=== PATIENT | male | born 1965 | race Caucasian/White ===

== ENCOUNTER 2021-01-17 19:19 | Emergency (ER) | payer SELFPAY ==
[~2021-01-17] VITALS: Ht 182 cm; Wt 128.0 kg
--- NOTE | 2021-01-17 19:49 | ED Respiratory ---
General Chief Complaint: Respiratory Problems Stated Complaint: OXYGEN LEVEL LOW,FEVER,COUGH,HEADACHE Source: patient History of Present Illness Date Seen by Provider: Jan 17, 2021 Time Seen by Provider: 19:30 Initial Comments Patient is a 55-year-old male who presents with nonproductive cough, fever chills sweats body aches and generalized malaise. Symptoms began approximately 7 to 10 days ago. Patient reports headache loss of taste and smell today. He has not been vaccinated for Covid. History of COPD. Patient has never been a smoker. No history of asthma. No medications or therapies prior to arrival. No other acute symptoms or complaints. Timing/Duration: just prior to arrival Severity: moderate Prior Episodes/Possible Cause: other Modifying Factors: Improves With Other Allergies and Home Medications Allergies Coded Allergies: No Known Drug Allergies (Unverified , 01/17/21) Patient Home Medication List Home Medication List Reviewed: Yes Review of Systems Review of Systems Constitutional: see HPI EENTM: see HPI Respiratory: see HPI Cardiovascular: see HPI Gastrointestinal: see HPI Genitourinary: see HPI Musculoskeletal: no symptoms reported Skin: no symptoms reported Psychiatric/Neurological: No Symptoms Reported Hematologic/Lymphatic: No Symptoms Reported Immunological/Allergic: no symptoms reported All Other Systems Reviewed Negative Unless Noted: Yes Past Rhbceti-Mqjhko-Kcjjlo Hx Patient Social History Tobacco Use?: No Physical Exam Vital Signs - First Documented 01/17/21 19:30 Temp 35.8 Pulse 118 Resp 20 B/P (MAP) 151/84 (106) Pulse Ox 96 O2 Delivery Room Air Capillary Refill : Height: '" Weight: lbs. oz. kg; BMI Method: General Appearance: WD/WN, no apparent distress Eyes: Bilateral Eye Normal Inspection, Bilateral Eye PERRL, Bilateral Eye EOMI HEENT: PERRL/EOMI, pharynx normal Neck: non-tender, full range of motion, supple Respiratory: chest non-tender, lungs clear, decreased breath sounds Cardiovascular: regular rate, rhythm Gastrointestinal: non tender, soft Extremities: no pedal edema Neurologic/Psychiatric: chipper II-XII nml as tested, no motor/sensory deficits, alert, oriented x 3 Focused Exam Sepsis Stage: Ruled Out Progress/Results/Core Measures Suspected Sepsis SIRS Temperature: Pulse: Respiratory Rate: Laboratory Tests 01/17/21 20:08: White Blood Count 7.4 Blood Pressure / Mean: Laboratory Tests 01/17/21 20:08: Creatinine 1.46H, Platelet Count 143, Total Bilirubin 0.6 Results/Orders Lab Results Laboratory Tests Test 01/17/21 20:08 Range/Units White Blood Count 7.4 4.3-11.0 10^3/uL Red Blood Count 5.04 4.30-5.52 10^6/uL Hemoglobin 15.8 13.3-17.7 g/dL Hematocrit 45 40-54 % Mean Corpuscular Volume 89 80-99 fL Mean Corpuscular Hemoglobin 31 25-34 pg Mean Corpuscular Hemoglobin Concent 35 32-36 g/dL Red Cell Distribution Width 12.9 10.0-14.5 % Platelet Count 143 130-400 10^3/uL Mean Platelet Volume 11.2 9.0-12.2 fL Immature Granulocyte % (Auto) 0 % Neutrophils (%) (Auto) 72 42-75 % Lymphocytes (%) (Auto) 20 12-44 % Monocytes (%) (Auto) 8 0-12 % Eosinophils (%) (Auto) 0 0-10 % Basophils (%) (Auto) 0 0-10 % Neutrophils # (Auto) 5.3 1.8-7.8 X 10^3 Lymphocytes # (Auto) 1.4 1.0-4.0 X 10^3 Monocytes # (Auto) 0.6 0.0-1.0 X 10^3 Eosinophils # (Auto) 0.0 0.0-0.3 10^3/uL Basophils # (Auto) 0.0 0.0-0.1 10^3/uL Immature Granulocyte # (Auto) 0.0 0.0-0.1 10^3/uL Sodium Level 133 L 135-145 MMOL/L Potassium Level 4.3 3.6-5.0 MMOL/L Chloride Level 96 L 98-107 MMOL/L Carbon Dioxide Level 19 L 21-32 MMOL/L Anion Gap 18 H 5-14 MMOL/L Blood Urea Nitrogen 16 7-18 MG/DL Creatinine 1.46 H 0.60-1.30 MG/DL Estimat Glomerular Filtration Rate 50 BUN/Creatinine Ratio 11 Glucose Level 232 H 70-105 MG/DL Calcium Level 8.8 8.5-10.1 MG/DL Corrected Calcium 8.6 8.5-10.1 MG/DL Total Bilirubin 0.6 0.1-1.0 MG/DL Aspartate Amino Transf (AST/SGOT) 46 H 5-34 U/L Alanine Aminotransferase (ALT/SGPT) 14 0-55 U/L Alkaline Phosphatase 70 40-136 U/L Troponin I < 0.30 <0.30 NG/ML Pro-B-Type Natriuretic Peptide 215.1 H <75.0 PG/ML Total Protein 8.3 H 6.4-8.2 GM/DL Albumin 4.3 3.2-4.5 GM/DL Smear Scan RARE PLT CLUMPS My Orders Orders - DEWEY ARANGO DO Cbc With Automated Diff (01/17/21 19:33) Comprehensive Metabolic Panel (01/17/21 19:33) Chest 1 View Ap/Pa Only (01/17/21:33) Ekg-Prn For Chest Pain Or Rhyt (01/17/21 19:33) Troponin I Fs (01/17/21 19:33) Probnp Fs (01/17/21 19:33) Doxycycline Hyclate Tablet (Vibramycin T (01/18/21 09:00) Vital Signs/I&O 01/17/21 19:30 Temp 35.8 Pulse 118 Resp 20 B/P (MAP) 151/84 (106) Pulse Ox 96 O2 Delivery Room Air Capillary Refill : Departure Communication (Admissions) Chest x-ray: Viral pneumonitis Chest x-ray, presentation also suspect small it is consistent with Covid pneumonia. No respiratory compromise. Steroids, antibiotics in breathing treatment given. We will continue therapeutic and supportive care with PCP follow-up as needed. Return precautions reviewed. Patient verbalizes understanding agreement discharge instructions prior to discharge Impression Primary Impression: COVID Disposition: 01 HOME, SELF-CARE Condition: Stable Departure-Patient Inst. Decision time for Depature: 21:02 Referrals: NO,LOCAL PHYSICIAN (PCP/Family) Primary Care Physician Patient Instructions: COVID-19 ED Add. Discharge Instructions: You were evaluated in the emergency department for cough, sweats, body aches loss of taste and smell. Chest x-ray labs were performed and are consistent with Covid pneumonia. Please monitor home oxygen level with digital pulse oximeter to ensure oxygen levels stayed greater than 90%. Take newly prescribed medications as directed and follow-up with your PCP in 1 week for reevaluation. In the meantime if you develop new or worsening symptoms, return to the ED. All discharge instructions reviewed with patient and/or family. Voiced understanding. Scripts Benzonatate (TESSALON PERLES) 100 Mg Capsule 200 MG PO Q8H, #20 CAP Prov: DEWEY ARANGO DO 01/17/21 Albuterol Sulfate (Proventil Hfa) 6.7 Gm Hfa.aer.ad 6.7 GM INH Q4H, #1 GM Prov: DEWEY ARANGO DO 01/17/21 Doxycycline Hyclate (Doxycycline Hyclate) 100 Mg Tablet 100 MG PO BID, #20 TAB 0 Refills Prov: DEWEY ARANGO DO 01/17/21 Prednisone (Prednisone) 20 Mg Tab 60 MG PO DAILY, #6 TAB 0 Refills Prov: DEWEY ARANGO DO 01/17/21 DEWEY ARANGO DO Jan 17, 2021 19:49
--- NOTE | 2021-01-17 20:22 | Diagnostic Imaging Report ---
INDICATION: Chest pain. EXAMINATION: Portable AP view of the chest was obtained. FINDINGS: Since 09/14/2009, there has been development of mild patchy increased density in the perihilar regions. This has a somewhat nodular appearance. No pneumothorax or definite pleural fluid is identified. IMPRESSION: Patchy infiltrates are seen in both lung, may represent pneumonitis or atypical pneumonia. Follow up study is recommended to document resolution and to exclude possibility of pulmonary nodules. Dictated by: Dictated on workstation # [id number]
[2021-01-17 20:36] LABS: HEMATOCRIT 45 % (40-54); HEMOGLOBIN 15.8 g/dL (13.3-17.7); MEAN CORPUSCULAR HEMOGLOBIN 31 pg (25-34); MEAN CORPUSCULAR HGB CONC 35 g/dL (32-36); MEAN CORPUSCULAR VOLUME 89 fL (80-99); WHITE BLOOD COUNT 7.4 10^3/uL (4.3-11.0)
[2021-01-17 20:37] LABS: BASOPHILS % (AUTO) 0 % (0-10); EOSINOPHILS % (AUTO) 0 % (0-10); LYMPHOCYTES # (AUTO) 1.4 X 10^3 (1.0-4.0); LYMPHOCYTES % (AUTO) 20 % (12-44); MEAN PLATELET VOLUME 11.2 fL (9.0-12.2); MONOCYTES # (AUTO) 0.6 X 10^3 (0.0-1.0); MONOCYTES % (AUTO) 8 % (0-12); NEUTROPHILS # (AUTO) 5.3 X 10^3 (1.8-7.8); NEUTROPHILS % (AUTO) 72 % (42-75)
[2021-01-17 20:45] LABS: PLATELET COUNT 143 10^3/uL (130-400)
[2021-01-17 20:46] LABS: SMEAR SCAN COMMENT RARE PLT CLUMPS
[2021-01-17 20:48] LABS: BUN/CREATININE RATIO 11; CARBON DIOXIDE 19 MMOL/L (21-32); CHLORIDE 96 MMOL/L (98-107); CREATININE SERUM 1.46 MG/DL (0.60-1.30); GFR ESTIMATED 50; POTASSIUM 4.3 MMOL/L (3.6-5.0); SODIUM 133 MMOL/L (135-145)
[2021-01-17 20:49] LABS: ALANINE AMINOTRANSFERASE 14 U/L (0-55); ALBUMIN 4.3 GM/DL (3.2-4.5); ALKALINE PHOSPHATASE 70 U/L (40-136); BILIRUBIN,TOTAL 0.6 MG/DL (0.1-1.0); CALCIUM 8.8 MG/DL (8.5-10.1); GLUCOSE 232 MG/DL (70-105); TOTAL PROTEIN 8.3 GM/DL (6.4-8.2)
[2021-01-17] MEDS ORDERED: ALBU6.7H8 INH (21:04)
[2021-01-17] MEDS ORDERED: DOXY100T2 PO (21:04)
[2021-01-17] MEDS ORDERED: PRD20T PO (21:04)
[2021-01-17] MEDS ORDERED: BENZ100C18 PO (21:05)
[2021-01-17] MEDS ORDERED: DOXYCYCLINE 100 MG (VIBRAMYCIN) TABLET ONE (21:05)
[2021-01-17] MEDS: DOXYCYCLINE 100 MG (VIBRAMYCIN) TABLET PO SCH (21:08)
[2021-01-17 21:12] VITALS: BP 151/84
== END 2021-01-17 21:12 | disposition home or self-care (01) ==
LOC: EDUNIT# 19:19 → ER FS 19:21
DX: U07.1 COVID-19 (principal)
CPT/HCPCS: 36415; 71045; 80053; 83880; 84484; 85025

== ENCOUNTER 2021-01-20 22:22 | Inpatient (IN) | payer SELFPAY ==
[~2021-01-20] VITALS: Ht 182.8 cm; Wt 122.3 kg
[~2021-01-20 22:22] MED LIST: ALBU6.7H8 INH; BENZ100C18 PO; DOXY100T2 PO; PRD20T PO
[2021-01-20] MEDS ORDERED: NS IV 1000 ML 1,000 ML IV SCH (22:45)
[2021-01-20 22:53] LABS: ABG BASE EXCESS -1.7 MMOL/L (-2.5-2.5); ABG OXYGEN SATURATION 98 % (94-100); ABG PCO2 25 MMHG (35-45); ABG PH 7.51 (7.37-7.43); ABG PO2 92 MMHG (79-93); ABG TCO2 20.7 MMOL/L (21.0-31.0); ALLENS TEST NEGATIVE; INSPIRED O2 3
[2021-01-20 22:54] LABS: VENTILATOR NO
[2021-01-20 22:55] LABS: PATIENT TEMP 37.4
--- NOTE | 2021-01-20 22:55 | ED Dyspnea ---
General Chief Complaint: Respiratory Problems Stated Complaint: SOB;COVID+ Source of Information: Patient, EMS, Old Records History of Present Illness Date Seen by Provider: Jan 20, 2021 Time Seen by Provider: 22:22 Initial Comments 55-year-old male presenting by EMS with complaints of increased shortness of breath tonight. He was seen on January 17 and diagnosed with presumed Covid since he was complaining of cough shortness of breath and loss of taste and smell. 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 He had an oxygen saturation around 85 to 86% on room air for EMS on their arrival. With 3 L by nasal cannula his oxygen saturation is up to 90 to 93%. He has continued cough that is occasionally productive of thick sputum. He did have a prescription of doxycycline as well as prednisone but states he did not feel it was helping him. He used albuterol inhaler just prior to EMS transport. He denies fever, chills, nausea, vomiting. He had some mild diarrhea when his symptoms started around 01/08 or earlier in the month. He has not seen a PCP since Dr. Frances left [facility] several years ago. Associated Symptoms: Cough, Edema, Fever, Lightheadedness, Pain, Weakness, Wheezing Allergies and Home Medications Allergies Coded Allergies: No Known Drug Allergies (Unverified , 01/17/21) Patient Home Medication List Home Medication List Reviewed: Yes Albuterol Sulfate (Proventil Hfa) 6.7 Gm Hfa.aer.ad, 6.7 GM INH Q4H Prescribed by: DEWEY ARANGO on 01/17/212103 Benzonatate (Tessalon Perles) 100 Mg Capsule, 200 MG PO Q8H Prescribed by: DEWEY ARANGO on 01/17/212104 Doxycycline Hyclate (Doxycycline Hyclate) 100 Mg Tablet, 100 MG PO BID Prescribed by: DEWEY ARANGO on 01/17/212103 Prednisone (Prednisone) 20 Mg Tab, 60 MG PO DAILY Prescribed by: DEWEY ARANGO on 01/17/212103 Review of Systems Review of Systems Constitutional: see HPI; No chills, No fever EENTM: nose congestion (mild) Respiratory: see HPI, cough; No hemoptysis; phlegm (occasional thick sputum), short of breath, wheezing Cardiovascular: No edema Gastrointestinal: diarrhea (early in illness ); No nausea, No vomiting Genitourinary: no symptoms reported Musculoskeletal: no symptoms reported Skin: No rash Psychiatric/Neurological: Denies Numbness, Denies Paresthesia Hematologic/Lymphatic: Denies Blood Clots Past Tcukxjf-Tpahba-Crxfky Hx Patient Social History Tobacco Use?: No Use of E-Cig and/or Vaping dev: No Substance use?: No Immunizations Up To Date First/Initial COVID19 Vaccinat: NA Past Medical History Surgeries: No Respiratory: Yes Pneumonia (history of recurrent pneumonia) Cardiac: No Neurological: No Genitourinary: No Gastrointestinal: No Physical Exam Vital Signs Vital Signs - First Documented 01/20/21 22:23 Temp 37.4 Pulse 101 Resp 26 B/P (MAP) 125/75 (92) Pulse Ox 93 O2 Delivery Nasal Cannula O2 Flow Rate 3.00 Capillary Refill : Height, Weight, BMI Height: '" Weight: lbs. oz. kg; 38.00 BMI Method: General Appearance: No Apparent Distress, Obese HEENT: PERRL/EOMI, Pharynx Normal Neck: Full Range of Motion, Normal Inspection, Non Tender, Supple Respiratory: Accessory Muscle Use, Decreased Breath Sounds, Rhonci (bases); No Stridor, No Wheezing Cardiovascular: Regular Rate, Rhythm, No Murmur, Normal Peripheral Pulses Gastrointestinal: Normal Bowel Sounds, No Pulsatile Mass, Non Tender, Soft Rectal: Deferred Extremity: Normal Capillary Refill, Normal Inspection, Normal Range of Motion, Non Tender, No Calf Tenderness, No Pedal Edema Neurologic/Psychiatric: Alert, Oriented x3, instructional coordinator II-XII Norm as Tested Skin: Normal Color, Warm/Dry; No Rash Progress/Results/Core Measures Results/Orders Lab Results Laboratory Tests Test 01/20/21 22:43 01/20/21 22:45 01/20/21 23:12 Range/Units White Blood Count 11.2 H 4.3-11.0 10^3/uL Red Blood Count 4.88 4.30-5.52 10^6/uL Hemoglobin 15.1 13.3-17.7 g/dL Hematocrit 43 40-54 % Mean Corpuscular Volume 88 80-99 fL Mean Corpuscular Hemoglobin 31 25-34 pg Mean Corpuscular Hemoglobin Concent 35 32-36 g/dL Red Cell Distribution Width 12.8 10.0-14.5 % Platelet Count 252 130-400 10^3/uL Mean Platelet Volume 10.5 9.0-12.2 fL Immature Granulocyte % (Auto) 0 % Neutrophils (%) (Auto) 84 H 42-75 % Lymphocytes (%) (Auto) 9 L 12-44 % Monocytes (%) (Auto) 6 0-12 % Eosinophils (%) (Auto) 0 0-10 % Basophils (%) (Auto) 0 0-10 % Neutrophils # (Auto) 9.4 H 1.8-7.8 X 10^3 Lymphocytes # (Auto) 1.1 1.0-4.0 X 10^3 Monocytes # (Auto) 0.7 0.0-1.0 X 10^3 Eosinophils # (Auto) 0.0 0.0-0.3 10^3/uL Basophils # (Auto) 0.0 0.0-0.1 10^3/uL Immature Granulocyte # (Auto) 0.0 0.0-0.1 10^3/uL Prothrombin Time 13.4 12.2-14.7 SEC INR Comment 1.0 0.8-1.4 Activated Partial Thromboplast Time 27 24-35 SEC D-Dimer 1.66 H 0.00-0.49 UG/ML Sodium Level 125 *L 135-145 MMOL/L Potassium Level 4.1 3.6-5.0 MMOL/L Chloride Level 91 L 98-107 MMOL/L Carbon Dioxide Level 19 L 21-32 MMOL/L Anion Gap 15 H 5-14 MMOL/L Blood Urea Nitrogen 29 H 7-18 MG/DL Creatinine 1.34 H 0.60-1.30 MG/DL Estimat Glomerular Filtration Rate 55 BUN/Creatinine Ratio 22 Glucose Level 300 H 70-105 MG/DL Calcium Level 8.7 8.5-10.1 MG/DL Corrected Calcium 9.2 8.5-10.1 MG/DL Total Bilirubin 0.8 0.1-1.0 MG/DL Aspartate Amino Transf (AST/SGOT) 38 H 5-34 U/L Alanine Aminotransferase (ALT/SGPT) 13 0-55 U/L Alkaline Phosphatase 50 40-136 U/L Troponin I < 0.30 <0.30 NG/ML C-Reactive Protein 7.41 H <0.50 MG/DL Pro-B-Type Natriuretic Peptide 74.9 <75.0 PG/ML Total Protein 8.1 6.4-8.2 GM/DL Albumin 3.4 3.2-4.5 GM/DL Blood Gas Puncture Site LEFT WRIST Blood Gas Patient Temperature 37.4 Arterial Blood pH 7.51 H 7.37-7.43 Arterial Blood Partial Pressure CO2 25 L 35-45 MMHG Arterial Blood Partial Pressure O2 92 79-93 MMHG Arterial Blood HCO3 20 L 23-27 MMOL/L Arterial Blood Total CO2 20.7 L 21.0-31.0 MMOL/L Arterial Blood Oxygen Saturation 98 94-100 % Arterial Blood Base Excess -1.7 -2.5-2.5 MMOL/L Josiah Test NEGATIVE Blood Gas Ventilator Setting NO Blood Gas Inspired Oxygen 3 Influenza Type A Antigen NEGATIVE NEGATIVE Influenza Type B Antigen NEGATIVE NEGATIVE My Orders Orders - TRINH KING MD Vital Signs: Every 4 Hours (Or (01/20/21 22:34) Monitor-Rhythm Ecg Trace Only (01/20/21 22:34) Ed Iv/Invasive Line Start (01/20/21 22:34) Cbc With Automated Diff (01/20/21 22:34) Comprehensive Metabolic Panel (01/20/21 22:34) Crp Fs (01/20/21 22:34) Troponin I Fs (01/20/21 22:34) Protime With Inr (01/20/21 22:34) Partial Thromboplastin Time (01/20/21 22:34) Ekg Tracing (01/20/21 22:34) Arterial Blood Gas (01/20/21 22:34) Ns Iv 1000 Ml (Sodium Chloride 0.9%) (01/20/21 22:45) Fibrin Degradation Products (01/20/21 22:34) Probnp Fs (01/20/21 22:34) Chest 1 View Ap/Pa Only (01/20/21 22:34) O2 (01/20/21 22:34) Dexamethasone Injection (Decadron Inje (01/20/21 22:34) Covid 19 Inhouse Test (01/20/21 22:55) Influenza A & B Antigens (01/20/21 22:55) Vital Signs/I&O 01/20/21 01/21/21 22:23 00:18 Temp 37.4 Pulse 101 84 Resp 26 28 B/P (MAP) 125/75 (92) 132/74 Pulse Ox 93 97 O2 Delivery Nasal Cannula Nasal Cannula O2 Flow Rate 3.00 3.00 Progress Progress Note #1: Progress Note Obtain labs, CXR, ABG, ECG, cardiac enzymes. Since he has not been formally swabbed for Covid or Flu will obtain that. Since he has hypoxia and requires supplemental O2 to keep sats above 90% will plan on admit of patient once have test results to review with hospitalist since pt does not have pcp. Progress Note #2: Progress Note lab shows elevated WBC mildly to 11.2. Chemistry with hyponatremia at 125 with glucose 300 and elevated BUN and Cr to go with dehydration. With recent steroid use the glucose and sodium are likely related to this as his glucose was 232 on Friday before steroids. CXR stable with patchy infiltrates. No acute ischemic findings on ECG and no prior tracing for comparison. Influenza is negative. Cardiac enzymes negative for acute [place]. He has elevated CRP to go with inflammatory process. ABG shows Alkalosis with elevated pH 7.51 and low pCO2 25 from his tachypnea. pO2 of 92 on the 3 Lpm with O2 sat 98 %, but he quickly desaturates into the mid 80s on O2 sat with minimal exertion. He was given Decadron 10 mg IV x 1 here in ED. d/w Dr. Morin for hospitalist service and will admit for PUI Covid, Hypoxia, Hyponatremia, Hyperglycemia. Use Covid order set, sliding scale insulin orders and bridge orders. MAT protocol for his breathing. Will do serial testing on his DDimer since slightly elevated to 1.66. Initial ECG Impression Date: Jan 20, 2021 Initial ECG Impression Time: 22:39 Initial ECG Rate: 99 Initial ECG Rhythm: Normal Sinus Initial ECG Comparisson: No Previous ECG Available Comment Normal sinus rhythm with a heart rate of 99 bpm. ME interval [address] elevation. QT interval 365 ms with a QTc interval 469 ms. No prior tracings for comparison Diagnostic Imaging Diagonstic Imaging: Xray Plain Films/CT/US/NM/MRI: chest Comments NAME: DEE GREENBERG Terrence [facility] REC#: [id number] PT STATUS: REG ER : 1965 PHYSICIAN: TRINH KING MD ADMIT DATE: 01/20/21/ER FS Signed Date of Exam:01/20/21 CHEST 1 VIEW AP/PA ONLY EXAMINATION: Chest 1 view HISTORY: hypoxia, short of breath, COVID+ COMPARISON: 01/17/2021 FINDINGS: Heart size and pulmonary vasculature are normal. There are mild patchy interstitial opacities within the mid and lower lungs. No significant change from 01/15/2021. No pleural effusion or pneumothorax. The osseous structures are intact. IMPRESSION: 1. Stable patchy interstitial opacities within both lungs. Dictated by: Dictated on workstation # [id number] Dict: 01/20/212256 Trans: 01/20/212304 [facility] [id number] Interpreted by: JOVANI RIVERA DO Electronically signed by: JOVANI RIVERA DO 01/20/212304 Reviewed: Reviewed by Me Departure Communication (Admissions) Time/Spoke to Admitting Phy: 23:53 d/w Dr. Morin for Hospitalist service and she accepted pt for admit for floor. Will do serial monitoring of the DDimer rather than CT chest for now. His sodium is low at 125 but he does appear dry with elevated BUN and Cr as well as his Glucose is 300 after being on steroids for last 3 days. Will continue with fluids and recheck tests in am. Impression Primary Impression: Hypoxemia Additional Impressions: Hyponatremia Person under investigation for COVID-19 Hyperglycemia Disposition: 30 STILL A PATIENT Condition: Stable Admissions Decision to Admit Reason: Admit from ER (General) Decision to Admit/Date: Jan 20, 2021 Time/Decision to Admit Time: 23:53 Departure-Patient Inst. Referrals: NO,LOCAL PHYSICIAN (PCP/Family) Primary Care Physician TRINH KING MD Jan 20, 2021 22:55
[2021-01-20 22:56] LABS: BASOPHILS % (AUTO) 0 % (0-10); EOSINOPHILS % (AUTO) 0 % (0-10); HEMATOCRIT 43 % (40-54); HEMOGLOBIN 15.1 g/dL (13.3-17.7); LYMPHOCYTES # (AUTO) 1.1 X 10^3 (1.0-4.0); LYMPHOCYTES % (AUTO) 9 % (12-44); MEAN CORPUSCULAR HEMOGLOBIN 31 pg (25-34); MEAN CORPUSCULAR HGB CONC 35 g/dL (32-36); MEAN CORPUSCULAR VOLUME 88 fL (80-99); MEAN PLATELET VOLUME 10.5 fL (9.0-12.2); MONOCYTES # (AUTO) 0.7 X 10^3 (0.0-1.0); MONOCYTES % (AUTO) 6 % (0-12); NEUTROPHILS # (AUTO) 9.4 X 10^3 (1.8-7.8); NEUTROPHILS % (AUTO) 84 % (42-75); PLATELET COUNT 252 10^3/uL (130-400); WHITE BLOOD COUNT 11.2 10^3/uL (4.3-11.0)
--- NOTE | 2021-01-20 23:00 | Diagnostic Imaging Report ---
EXAMINATION: Chest 1 view HISTORY: hypoxia, short of breath, COVID+ COMPARISON: 01/17/2021 FINDINGS: Heart size and pulmonary vasculature are normal. There are mild patchy interstitial opacities within the mid and lower lungs. No significant change from 01/15/2021. No pleural effusion or pneumothorax. The osseous structures are intact. IMPRESSION: 1. Stable patchy interstitial opacities within both lungs. Dictated by: Dictated on workstation # [id number]
[2021-01-20 23:09] LABS: PROTHROMBIN TIME PATIENT 13.4 SEC (12.2-14.7)
[2021-01-20 23:19] LABS: BUN/CREATININE RATIO 22; CARBON DIOXIDE 19 MMOL/L (21-32); CHLORIDE 91 MMOL/L (98-107); CREATININE SERUM 1.34 MG/DL (0.60-1.30); GFR ESTIMATED 55; GLUCOSE 300 MG/DL (70-105); POTASSIUM 4.1 MMOL/L (3.6-5.0)
[2021-01-20 23:20] LABS: ALANINE AMINOTRANSFERASE 13 U/L (0-55); ALBUMIN 3.4 GM/DL (3.2-4.5); ALKALINE PHOSPHATASE 50 U/L (40-136); BILIRUBIN,TOTAL 0.8 MG/DL (0.1-1.0); CALCIUM 8.7 MG/DL (8.5-10.1); TOTAL PROTEIN 8.1 GM/DL (6.4-8.2)
[2021-01-20 23:21] LABS: SODIUM 125 MMOL/L (135-145)
[2021-01-21] VITALS (7 sets, daily range): BP systolic 105–132; BP diastolic 65–77
[2021-01-21] MEDS ORDERED: ACETAMINOPHEN 325 MG TABLET PO PRN (01:30)
[2021-01-21] MEDS ORDERED: RT-ALBUTEROL HFA 8.5 GM INHALER IH PRN ×2 (01:30→03:45)
[2021-01-21] MEDS ORDERED: ONDANSETRON 4 MG/5 ML ORAL SOLN (ZOFRAN) 5 ML PO PRN (01:30)
[2021-01-21] MEDS ORDERED: guaiFENesin SYRUP 100 MG/5 ML 10 ML (ROBITUSSIN SF) PO PRN (01:30)
[2021-01-21] MEDS ORDERED: LACTATED RINGERS 1,000 ML IV SCH (01:30)
[2021-01-21] MEDS ORDERED: RT-ALBUTEROL HFA 8.5 GM INHALER IH SCH (03:00)
[2021-01-21] MEDS: inSUlin ASPART (NovoLOG) 1 UNIT/0.01 ML (CHARGE PER UNIT) SC SCH ×4 (06:45→22:51)
[2021-01-21 07:02] LABS: BASOPHILS % (AUTO) 0 % (0-10); EOSINOPHILS % (AUTO) 0 % (0-10); HEMATOCRIT 44 % (40-54); HEMOGLOBIN 14.9 g/dL (13.3-17.7); LYMPHOCYTES # (AUTO) 0.8 10^3/uL (1.0-4.0); LYMPHOCYTES % (AUTO) 13 % (12-44); MEAN CORPUSCULAR HEMOGLOBIN 31 pg (25-34); MEAN CORPUSCULAR HGB CONC 34 g/dL (32-36); MEAN CORPUSCULAR VOLUME 91 fL (80-99); MONOCYTES # (AUTO) 0.2 10^3/uL (0.0-1.0); MONOCYTES % (AUTO) 3 % (0-12); NEUTROPHILS # (AUTO) 5.3 10^3/uL (1.8-7.8); NEUTROPHILS % (AUTO) 83 % (42-75); PLATELET COUNT 187 10^3/uL (130-400); WHITE BLOOD COUNT 6.3 10^3/uL (4.3-11.0)
[2021-01-21 07:14] LABS: POTASSIUM 4.8 MMOL/L (3.6-5.0)
[2021-01-21 07:19] LABS: CREATININE SERUM 1.41 MG/DL (0.60-1.30)
[2021-01-21] MEDS: RT-ALBUTEROL HFA 8.5 GM INHALER IH SCH ×5 (07:36→21:01)
[2021-01-21] MEDS: UMECLIDINIUM BROMIDE (INCRUSE ELLIPTA) 7'S IH SCH (07:36)
[2021-01-21] MEDS: dexAMETHasone 6 MG TAB (DECADRON) PO SCH (08:03)
[2021-01-21] MEDS: ENOXAPARIN 40 MG/0.4 ML (LOVENOX) SYR SC SCH (08:03)
--- NOTE | 2021-01-21 10:34 | History & Physical-Hospitalist ---
History of Present Illness HPI/Chief Complaint She is a 55-year-old male with no known past medical history who presented to the emergency department due to hypoxia. He states that his symptoms started on January 09 when he and his 2 boxes began to feel poorly. He is a somewhat difficult historian and is unable to clearly state what his symptoms were but will agree when asked. He does endorse cough, fever, loss of taste and smell, body aches. He states he was doing well until earlier this week. I asked him if this was when he went to the emergency room on January 17 but he is unsure. He states that everything has kind of been a blur for the past few days. He notes that he was in the emergency room and was sent home. His sister was checking his oxygen for him and noticed that it was 84% so brought him to the ER for evaluation. I did speak with his sister, Tahmina, who states that he had been compliant with the medicines given to him from the ER on the . Yesterday he was hypoxic and admitted for further management. Source: patient, family Date Seen 01/21/21 Time Seen by a Provider: 10:24 Attending Physician Saeed Morin MD PCP No,Local Physician Referring Physician Date of Admission Jan 21, 2021 at 01:09 Home Medications & Allergies Home Medications Reviewed patient Home Medication Reconciliation performed by pharmacy medication reconciliations remote broadcast technician and/or nursing. Patients Allergies have been reviewed. Allergies Allergies Coded Allergies No Known Drug Allergies (Unverified01/21/21) Past Nyipsnj-Pvruua-Ljknwo Hx Patient Social History Employed/Student: employed Tobacco Use?: Yes Smoking Status: Never a Smoker Smokeless type used: Chew Smokeless Tobacco Frequency: Current Everyday User Use of E-Cig and/or Vaping dev: No Substance use?: No Alcohol Use?: Yes Alcohol type: Beer Alcohol Frequency: Once in a while Pt feels they are or have been: No Immunizations Up To Date First/Initial COVID19 Vaccinat: NA Tetanus Booster (TDap): More Than 5 Years Hepatitis A: No Hepatitis B: No Current Status Advance Directives: No Communicates: Verbally Primary Language: Tajik Preferred Spoken Language: Tajik Is interpretation needed?: No Implanted or Applied Medical D: None Past Medical History Pneumonia (history of recurrent pneumonia) Family Medical History Reviewed Nursing Family Hx No Pertinent Family Hx Sister- Alive and healthy Review of Systems Constitutional: chills, diaphoresis, fever, malaise EENTM: no symptoms reported Respiratory: cough, short of breath Cardiovascular: No chest pain, No edema, No Hx of Intervention Gastrointestinal: No constipation, No diarrhea; loss of appetite; No nausea, No vomiting Genitourinary: no symptoms reported Musculoskeletal: muscle pain, muscle cramps Skin: no symptoms reported Psychiatric/Neurological: No Symptoms Reported Physical Exam Physical Exam Vital Signs Vital Signs - First Documented 01/20/21 01/21/21 22:23 03:25 Temp 37.4 Pulse 101 Resp 26 B/P (MAP) 125/75 (92) Pulse Ox 93 O2 Delivery Nasal Cannula O2 Flow Rate 3.00 FiO2 32 Capillary Refill : Less Than 3 Seconds Height, Weight, BMI Height: '" Weight: lbs. oz. kg; 36.27 BMI Method: General Appearance: No Apparent Distress, WD/WN, Obese HEENT: PERRL/EOMI, Moist Mucous Membranes; No Scleral Icterus (L), No Scleral Icterus (R); Other (porr dentition) Neck: Normal Inspection, Supple Respiratory: No Accessory Muscle Use; No Crackles; Decreased Breath Sounds; No Wheezing; Other (on 2lpm NC) Cardiovascular: Regular Rate, Rhythm, No JVD, No Murmur Gastrointestinal: Normal Bowel Sounds, Non Tender, Soft Extremity: Normal Capillary Refill, No Calf Tenderness, No Pedal Edema Neurologic/Psychiatric: Alert, Oriented x3, Normal Mood/Affect Results Results/Procedures Labs Laboratory Tests 01/20/21 22:43 01/21/21 06:32 Patient resulted labs reviewed. Imaging: Reviewed Imaging Report Imaging [facility], [place] NAME: DEE [facility] REC#: [id number] PT STATUS: REG ER : 1965 PHYSICIAN: TRINH KING MD ADMIT DATE: 01/20/21/ER FS Signed Date of Exam:01/20/21 CHEST 1 VIEW AP/PA ONLY EXAMINATION: Chest 1 view HISTORY: hypoxia, short of breath, COVID+ COMPARISON: 01/17/2021 FINDINGS: Heart size and pulmonary vasculature are normal. There are mild patchy interstitial opacities within the mid and lower lungs. No significant change from 01/15/2021. No pleural effusion or pneumothorax. The osseous structures are intact. IMPRESSION: 1. Stable patchy interstitial opacities within both lungs. Dictated by: Dictated on workstation # [id number] Dict: 01/20/212256 Trans: 01/20/212304 CHARITY [id number] Interpreted by: JOVANI RIVERA DO Electronically signed by: JOVANI RIVERA DO 01/20/217 Assessment/Plan Admission Diagnosis Acute hypoxic respiratory failure due to COVID19 Admission Status: Inpatient Order (span 2 midnights) Reason for Inpatient Admission: see below Assessment and Plan Acute hypoxic respiratory failure due to COVID19 Continue Decadron Outside of window for remdesivir IS MAT protocol No indication of bacterial infection Prone as able Lovenox for DVT ppx Wean oxygen as able History somewhat unclear on timing but likely over 10 days, if stable may be able to DC home quickly with home oxygen Hyponatremia Likely from hypovolemia and htyperglyccemia Sodium this AM corrects to 136 Undiagnosed DM Fasting BS 310 this AM Was 232 in ER in 01/17 prior to steroids use a1c ordered Continue SSI Add levemir CKD Creatinine 1.41 today and 1.46 on 01/17 Trend Tobacco abuse Recommended cessation DVT ppx: Lovenox Diagnosis/Problems Diagnosis/Problems (1) Acute respiratory failure Qualifiers: Respiratory failure complication: hypoxia Qualified Codes: J96.01 - Acute respiratory failure with hypoxia (2) CKD (chronic kidney disease) Status: Chronic Qualifiers: Chronic kidney disease stage: stage 1 Qualified Codes: N18.1 - Chronic kidney disease, stage 1 (3) COVID-19 Status: Acute (4) Non-insulin dependent type 2 diabetes mellitus Status: Acute (5) Obesity Status: Chronic Qualifiers: Obesity classification: adult class 2 (BMI 35 - 39.9) Serious obesity comorbidity presence: without serious comorbidity Body mass index: BMI 36.0- 36.9 (6) Hyponatremia Status: Acute SAEED MORIN MD Jan 21, 2021 10:34
[2021-01-21] MEDS ORDERED: MILK OF MAGNESIA 400 MG/5 ML 30 ML UDC PO PRN (10:45)
[2021-01-21] MEDS ORDERED: BENZONATATE 100 MG (TESSALON) CAPSULE PO PRN (10:45)
[2021-01-21] MEDS ORDERED: MELATONIN 3 MG TABLET PO PRN (10:45)
[2021-01-21] MEDS ORDERED: ANTACID SUSP 30 ML UDC (MYLANTA) PO PRN (10:45)
[2021-01-21] MEDS ORDERED: ONDANSETRON 4 MG/2 ML (SDV) Z0FRAN IV PRN (10:45)
[2021-01-22] MEDS: RT-ALBUTEROL HFA 8.5 GM INHALER IH SCH ×4 (02:18→15:08)
[2021-01-22 02:59] VITALS: BP 114/66
[2021-01-22 03:08] VITALS: BP 114/66
[2021-01-22 06:23] LABS: HEMATOCRIT 37 % (40-54); HEMOGLOBIN 13.1 g/dL (13.3-17.7); MEAN CORPUSCULAR HEMOGLOBIN 31 pg (25-34); MEAN CORPUSCULAR HGB CONC 35 g/dL (32-36); MEAN CORPUSCULAR VOLUME 89 fL (80-99); MEAN PLATELET VOLUME 11.2 fL (9.0-12.2); PLATELET COUNT 190 10^3/uL (130-400); WHITE BLOOD COUNT 9.7 10^3/uL (4.3-11.0)
[2021-01-22] MEDS: inSUlin ASPART (NovoLOG) 1 UNIT/0.01 ML (CHARGE PER UNIT) SC SCH ×2 (06:30→11:49)
[2021-01-22 06:39] LABS: CREATININE SERUM 0.99 MG/DL (0.60-1.30); POTASSIUM 4.3 MMOL/L (3.6-5.0)
[2021-01-22] MEDS: UMECLIDINIUM BROMIDE (INCRUSE ELLIPTA) 7'S IH SCH (07:07)
[2021-01-22 07:56] VITALS: BP 109/64
[2021-01-22] MEDS: dexAMETHasone 6 MG TAB (DECADRON) PO SCH (08:56)
[2021-01-22] MEDS: ENOXAPARIN 40 MG/0.4 ML (LOVENOX) SYR SC SCH (08:56)
[2021-01-22] MEDS ORDERED: METF-397 PO (11:21)
--- NOTE | 2021-01-22 11:56 | Discharge Summary ---
Discharge Summary Hospital Course Problems/Dx: (1) Acute respiratory failure Qualifiers: Qualified Codes: J96.01 - Acute respiratory failure with hypoxia (2) CKD (chronic kidney disease) Status: Chronic Qualifiers: Qualified Codes: N18.1 - Chronic kidney disease, stage 1 (3) COVID-19 Status: Acute (4) Non-insulin dependent type 2 diabetes mellitus Status: Acute (5) Obesity Status: Chronic Qualifiers: (6) Hyponatremia Status: Acute Hospital Course Date of Admission: Jan 21, 2021 at 01:09 Admission Diagnosis : Acute respiratory failure due to COVID-19 Family Physician/Provider: YasminLocal Physician Date of Discharge: 01/22/21 Discharge Diagnosis: Acute respiratory failure due to COVID-19 Hospital Course: Maurice Hanna is a 55 year old male who was admitted with acute respiratory failure due to COVID-19. He was treated with steroids and improved quickly. He was requiring 2 L oxygen continuously and 4 L with activity at the time of discharge. His course was complicated by newly diagnosed type II diabetes mellitus. He was started on Metformin. He was discharged home in stable condition. He needs to establish with a primary care physician. Labs and Pending Lab Test: Laboratory Tests 01/21/21 15:52: Glucometer 355H 01/21/21 20:17: Glucometer 375H 01/22/21 05:45: Glucometer 273H, White Blood Count 9.7, Red Blood Count 4.18L, Hemoglobin 13.1L, Hematocrit 37L, Mean Corpuscular Volume 89, Mean Corpuscular Hemoglobin 31, Mean Corpuscular Hemoglobin Concent 35, Red Cell Distribution Width 12.6, Platelet Count 190, Mean Platelet Volume 11.2, Sodium Level 135, Potassium Level 4.3, Chloride Level 104, Carbon Dioxide Level 18L, Anion Gap 13, Blood Urea Nitrogen 28H, Creatinine 0.99, Estimat Glomerular Filtration Rate 78, BUN/Creatinine Ratio 28, Glucose Level 264H, Calcium Level 9.0 01/22/21 11:19: Glucometer 331H Home Meds Active Metformin HCl 500 Mg Tablet 500 Mg PO DAILY 30 Days Tessalon Perles (Benzonatate) 100 Mg Capsule 200 Mg PO Q8H Proventil Hfa (Albuterol Sulfate) 6.7 Gm Hfa.aer.ad 6.7 Gm INH Q4H Doxycycline Hyclate 100 Mg Tablet 100 Mg PO BID Prednisone 20 Mg Tab 60 Mg PO DAILY Assessment/Pt Instructions Take medications as prescribed. You are being set up with home oxygen therapy. Establish care with a primary care physician. Return with worsening shortness of breath or if you feel like you are getting worse. Discharge Planning: <30 minutes discharge planning Discharge Instructions Discharge Diet: No Restrictions Activity as Tolerated: Yes Discharge Physical Examination Vital Signs Vital Signs Date Time Temp Pulse Resp B/P (MAP) Pulse Ox O2 Delivery O2 Flow Rate FiO2 01/22/21 11:33 92 Nasal Cannula 2.00 01/22/21 07:56 36.3 69 20 109/64 (79) 01/21/21 03:25 32 General Appearance: No Apparent Distress, Obese Respiratory: Lungs Clear, Normal Breath Sounds, No Respiratory Distress Cardiovascular: Regular Rate, Rhythm, No Edema, No Murmur Gastrointestinal: Normal Bowel Sounds, Non Tender, Soft Extremity: Normal Inspection, Non Tender, No Pedal Edema Skin: Normal Color, Warm/Dry Neurologic/Psychiatric: Alert, Oriented x3, No Motor/Sensory Deficits, Normal Mood/Affect Allergies: Coded Allergies: No Known Drug Allergies (Unverified , 01/21/21) Copy Copies To 1: [facility] [place] Date of Admission Jan 21, 2021 at 01:09 Date of Discharge Discharge Date: Jan 22, 2021 Discharge Time: 09:45 Admission Diagnosis Acute hypoxic respiratory failure due to COVID19 Discharge Diagnosis (1) Acute respiratory failure Qualifiers: Qualified Codes: J96.01 - Acute respiratory failure with hypoxia (2) CKD (chronic kidney disease) Status: Chronic Qualifiers: Qualified Codes: N18.1 - Chronic kidney disease, stage 1 (3) COVID-19 Status: Acute (4) Non-insulin dependent type 2 diabetes mellitus Status: Acute (5) Obesity Status: Chronic Qualifiers: (6) Hyponatremia Status: Acute NIRMAL BOSTON MD Jan 22, 2021 11:55
[2021-01-22 12:00] VITALS: BP 116/67
[2021-01-22 15:19] VITALS: BP 116/67
== END 2021-01-22 15:50 | disposition home or self-care (01) | DRG 177 ==
LOC: EDUNIT# 22:22 → ER FS 22:24 → 4TH 01-21 01:09
PROVIDERS: ADMIT Family Medicine; ATTEND Family Medicine
PROC: 8E0ZXY6 Isolation (ICD-10-PCS; principal; 2021-01-21)
DX: U07.1 COVID-19 (principal); J96.01 Acute respiratory failure with hypoxia; E87.1 Hypo-osmolality and hyponatremia; E86.0 Dehydration; E11.65 Type 2 diabetes mellitus with hyperglycemia; E11.22 Type 2 diabetes mellitus with diabetic chronic kidney disease; N18.1 Chronic kidney disease, stage 1; E66.9 Obesity, unspecified; F17.220 Nicotine dependence, chewing tobacco, uncomplicated; Z68.36 Body mass index [BMI] 36.0-36.9, adult
CPT/HCPCS: 36415; 71045; 80048; 80053; 82805; 82947; 83036; 83880; 84484; 85025; 85027; 85379; 85610; 85730; 86141; 87636; 87804; 93005; 93041; 94640; 94664; 94760; 94761